=== PATIENT | female | born 2000 | race Hispanic/Latino ===

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

== ENCOUNTER 2023-07-27 15:03 | Emergency (ER) | payer MEDICAID, SELFPAY ==
[2023-07-27 15:05] VITALS: BP 145/96; PULSE 126; RESP 18; TEMP 36.6; O2SAT 96; BMI 33.3
--- NOTE | 2023-07-27 15:20 | EX.ED.DYSGE1 ---
HPI History of Present Illness Chief Complaint: Abn Labs Informant: patient Narrative Narrative: Patient presents with some irritation and swelling behind both ears. Patient states that about 2 years ago she had swelling behind the right ear. It was thought to be due to her wisdom teeth coming in. It was thought to be a lymph node. That went away and was completely gone. She states about 2 weeks ago she had a little swelling back there but then it got better. Now over the last few days she has had a little swelling behind the left but it sort of sore along the skin behind the neck. She states she does have a headache. No pain with neck motion. No numbness tingling weakness. No visual change. No nausea vomiting. No fevers or chills. She saw a physician at the [facility] today who placed her on antibiotics. She is not sure what it was but it was twice a day for about 10 days and she has taken 1 dose. She came in this evening/this afternoon to get a different opinion and to look at the area. Of note, the patient states she gets very nervous in medical facilities. She is not having any palpitations or chest pain. She has no sense that her heart rate was going quick when she came in. Other than the sore area as above, she has no symptoms at all. PFSH PFSH Medical History no medical history Allergy/AdvReac Type Severity Reaction Status Date / Time Fish Containing Products Allergy Vomiting Verified 07/27/23 15:05 shellfish derived Allergy Vomiting Verified 07/27/23 15:05 Social History Smoking Status: Unknown if ever smoked ROS [facility] ED Constitutional Constitutional ED: Denies chills, fever(s), subjective or sweats Eyes Eyes: Denies blurry vision or change in vision ENT ENT ED: Reports other Details: See history of present illness. Her wisdom teeth are not really bothering her now. ; Denies rhinorrhea or sore throat Cardiovascular Cardiovascular: Denies chest pain, palpitations or racing heartbeat Respiratory/Chest Respiratory/Chest: Denies cough or dyspnea Gastrointestinal Gastrointestinal: Denies nausea or vomiting Genitourinary Genitourinary ED: Denies dysuria Musculoskeletal Musculoskeletal: Reports neck pain; Denies back pain Integumentary Reports rash; Denies abscess or Abrasions Neurologic Neurologic: Denies headache(s), paresthesias or weakness Hematologic/Lymphatic Hematologic/Lymphatic: Denies easy bleeding or easy bruising Allergic/Immunologic Allergic/Immunologic ED: Denies urticaria EXAM Physical Exam Narrative Exam Narrative: Patient awake alert no acute distress sitting comfortably in bed carries on normal conversation. HEENT shows no anterior swelling redness rash or vesicles. No facial tenderness. Tympanic membranes are clear bilaterally. No pain with motion of the ears. There is a little bit of erythema of the skin behind the right ear. It is really posterior to the mastoid area. No mastoid tenderness. I do not really feel any enlarged lymph nodes. On the left side there is a little area of erythema buried in the hair also. But no lymph nodes. Again range of motion is normal. Oropharynx shows impacted wisdom teeth but they are not inflamed or infected. No sign of pericoronitis. Overall internal oral exam is normal. Neck is supple. See above on the posterior aspect. But there is no lymphadenopathy or tenderness. No pain with motion. Lungs are clear bilaterally. There is no supra or infraclavicular lymph nodes. Heart rate is 96 when I count. She is not tachycardic at this time. I think her increased heart rate was likely due to anxiety which she states she gets in a medical facility. Abdomen is benign. Const Vital Signs: 07/27/23 15:05 07/27/23 15:16 Temperature 97.9 F Temperature Source Temporal Pulse Rate 126 H Respiratory Rate 18 Respiratory Effort Normal Non-Labored Blood Pressure 145/96 H Blood Pressure Mean 112 Pulse Ox 96 Oxygen Delivery Method Room Air MDM MDM MDM Narrative Medical decision making narrative: I am not seeing any acute abnormality that needs a change in therapy. She may have a little bit of folliculitis or cellulitis in the back of the scalp. I recommend she continue the antibiotics that she is on. She has only had 1 pill. We will see where this goes over time and she will follow-up with the health center. Discharge Plan Triage Chief Complaint: Abn Labs ED Provider: Blair Prasad Dx/Rx/DC Orders Clinical Impression: Folliculitis Instructions: ED Folliculitis Primary Care Provider: MARIETTA Matthews Referrals: MARIETTA Matthews [Other] (If not better in 3 to 5 days. May also follow-up with your Health Center.) Disposition Disposition: Home, Self Care
[2023-07-27 15:29] VITALS: RESP 16; O2SAT 97
== END 2023-07-27 15:30 | disposition home or self-care (01) ==
PROVIDERS: Emergency Provider Emergency Medicine; Visit Provider Emergency Medicine
DX: L73.9 Follicular disorder, unspecified (principal)
CPT/HCPCS: 99282

== ENCOUNTER 2023-07-28 13:17 | Emergency (ER) | payer MEDICAID, SELFPAY ==
[2023-07-28 13:19] VITALS: BP 120/89; PULSE 114; RESP 16; TEMP 36.6; O2SAT 99; BMI 32.5
[2023-07-28 13:23] VITALS: PULSE 104; O2SAT 99
--- NOTE | 2023-07-28 13:52 | EDS_ITS ---
HPI History of Present Illness Chief Complaint: General Illness Informant: patient Onset/Context/Timing Onset: Today Narrative Narrative: Patient presents secondary to scalp pain. She was seen both at the [facility] as well as in the ER secondary to erythema and irritation along the posterior scalp. She had been given an antibiotic at the [facility]. It sounds like she is likely on a cephalosporin. Patient was seen last night and advised to continue the current antibiotic treatment. It was felt she likely had folliculitis and an area of redness in the posterior scalp was noted. Patient returns today stating that she now has pain over the entire back of her scalp. Last night she had a left-sided headache and today a right-sided headache. [facility] Medical History Asthma Home Medications naproxen 500 mg tablet (Naprosyn) 500 mg PO BID PRN pain #20 tabs 07/28/23 [Rx Last Taken Unknown] Allergy/AdvReac Type Severity Reaction Status Date / Time Fish Containing Products Allergy Vomiting Verified 07/28/23 13:20 shellfish derived Allergy Vomiting Verified 07/28/23 13:20 Social History Smoking Status: Never smoker ROS ROS ED Constitutional Constitutional ED: Denies chills or fever(s) Eyes Eyes: Denies discharge from eye(s) ENT ENT ED: Denies discharge from eye(s), rhinorrhea or sore throat Cardiovascular Cardiovascular: Denies chest pain or palpitations Respiratory/Chest Respiratory/Chest: Denies cough or dyspnea Gastrointestinal Gastrointestinal: Denies abdominal pain, nausea or vomiting Musculoskeletal Musculoskeletal: Denies back pain or extremity pain Integumentary Reports rash; Denies Abrasions Neurologic Neurologic: Denies headache(s) or weakness Psychiatric Psychiatric: Reports anxiety; Denies depression Allergic/Immunologic Allergic/Immunologic ED: Denies lip swelling or urticaria EXAM Physical Exam Const Vital Signs: 07/28/23 13:19 07/28/23 13:23 Temperature 97.9 F Temperature Source Temporal Pulse Rate 114 H 104 H Respiratory Rate 16 Blood Pressure 120/89 H Blood Pressure Mean 99 Pulse Ox 99 99 Oxygen Delivery Method Room Air Room Air Positive well nourished and well developed General Appearance ED: well developed HEENT Reports moist mucous membranes Eyes EOMs intact bilaterally Chest Wall inspection of chest normal and palpation of chest normal Resp normal respiratory effort and clear to auscultation bilaterally Cardio regular rate and regular rhythm GI normal to inspection, nondistended, normoactive bowel sounds Extremity normal to inspection Neuro oriented x3 and no sensory deficits noted Motor Exam: strength 5/5 throughout Skin Skin Narrative: No skin rash noted at this time, however patient does have very thick curly hair. Last night in the area of erythema was noted in the posterior scalp. I certainly see no large areas of cellulitis or significant inflammation. MDM MDM MDM Narrative Medical decision making narrative: Patient returns secondary to increased pain after being diagnosed with folliculitis and placed on antibiotic. At this time I see no concern for worsening infection. She raises concern about possible infection in her brain and needing other imaging. She is reassured that at this time imaging is not indicated and there is no evidence of a deep infection or any problems with her brain. I will write her prescription for naproxen to help with pain and inflammation. Return instructions given. Discharge Plan Triage Chief Complaint: General Illness ED Provider: Ciarra Whitaker Dx/Rx/DC Orders Clinical Impression: Scalp pain, Folliculitis Instructions: ED Folliculitis Prescriptions: New naproxen [Naprosyn] 500 mg tablet 500 mg PO BID PRN (Reason: pain) Qty: 20 0RF Primary Care Provider: MARIETTA Matthews Referrals: MARIETTA Matthews [Other] [facility] [Group of Physicians] - As Needed Disposition Disposition: Home, Self Care
== END 2023-07-28 14:02 | disposition home or self-care (01) ==
PROVIDERS: Emergency Provider Emergency Medicine; Visit Provider Emergency Medicine
DX: L73.9 Follicular disorder, unspecified (principal)
CPT/HCPCS: 99282

== ENCOUNTER 2023-08-17 02:07 | Emergency (ER) | payer MEDICAID, SELFPAY ==
[2023-08-17 02:08] VITALS: BP 136/87; PULSE 104; RESP 16; TEMP 36.7; O2SAT 99; BMI 32.8
--- NOTE | 2023-08-17 02:17 | EX.ED.DYSGE1 ---
HPI History of Present Illness Chief Complaint: Headache Detail of Chief Complaint: Left hand paresthesias Informant: patient Onset/Context/Timing Onset: Today Narrative Narrative: Patient presents due to concerns about left hand paresthesias. About 3 weeks ago she developed some intermittent swelling on the posterior scalp. It was intermittently painful. She was seen at urgent care as well as in the emergency room and placed on antibiotics and anti-inflammatories for presumed folliculitis. Patient states she completed the full course of medication and her symptoms resolved. After about a week she started noticing intermittent swelling to the right posterior scalp, however states the area has not been painful. Tonight she noted paresthesias in her left hand and was concerned so she came in for evaluation. She is supposed to be seen in 2 days at the [facility] for repeat evaluation. [facility] Medical History Asthma Allergy/AdvReac Type Severity Reaction Status Date / Time Fish Containing Products Allergy Vomiting Verified 08/17/23 02:11 shellfish derived Allergy Vomiting Verified 08/17/23 02:11 Social History Smoking Status: Never smoker ROS ROS ED Constitutional Constitutional ED: Denies chills or fever(s) Eyes Eyes: Denies change in vision or discharge from eye(s) ENT ENT ED: Denies discharge from eye(s), rhinorrhea or sore throat Cardiovascular Cardiovascular: Denies chest pain or palpitations Respiratory/Chest Respiratory/Chest: Denies cough or dyspnea Gastrointestinal Gastrointestinal: Denies abdominal pain, diarrhea, nausea or vomiting Genitourinary Genitourinary ED: Denies difficulty urinating or dysuria Musculoskeletal Musculoskeletal: Reports neck pain; Denies back pain or extremity pain Integumentary Denies Abrasions or rash Neurologic Neurologic: Reports headache(s) and paresthesias LUE; Denies weakness Psychiatric Psychiatric: Denies anxiety or depression Endocrine Endocrinology: Denies polydipsia or polyuria Allergic/Immunologic Allergic/Immunologic ED: Denies lip swelling or urticaria EXAM Physical Exam Const Vital Signs: 08/17/23 02:08 Temperature 98.1 F Temperature Source Temporal Pulse Rate 104 H Respiratory Rate 16 Blood Pressure 136/87 H Blood Pressure Mean 103 Pulse Ox 99 Oxygen Delivery Method Room Air Positive well nourished and well developed General Appearance ED: well developed HEENT Reports moist mucous membranes Eyes PERRL and EOMs intact bilaterally Neck no lymphadenopathy Chest Wall inspection of chest normal and palpation of chest normal Resp normal respiratory effort and clear to auscultation bilaterally Cardio regular rate and regular rhythm GI non-tender Back/Spine Cervical Spine: Negative for cervical spine tenderness Extremity Extremity Narrative: Patient reports decreased sensation to light touch along her thumb and along the ulnar surface of her fifth finger. She has normal sensation throughout the forearm and upper arm. She has normal strength throughout on testing. She has good cap refill with a strong radial pulse. Neuro oriented x3 Sensory Exam: sensory level loss detected Motor Exam: strength 5/5 throughout Psych mental status grossly normal Skin no rashes or lesions noted MDM MDM MDM Narrative Medical decision making narrative: Given the patient just has paresthesias in the hand and not along the same nerve distribution, I do not feel imaging will be beneficial. I will obtain blood work to include potassium and magnesium levels to ensure these are not abnormal and affecting her nerve conduction. Lab Data Labs: Laboratory Results - last 24 hr 08/17/23 02:20 WBC 12.1 H RBC 4.67 Hgb 12.3 Hct 40.0 MCV 85.7 MCH 26.3 L MCHC 30.8 L RDW Std Deviation 43.1 RDW Coeff of Nathan 13.9 Plt Count 355 MPV 9.9 Immature Gran % (Auto) 0.300 Neut % (Auto) 52.5 Lymph % (Auto) 38.1 Hayes % (Auto) 7.5 Eos % (Auto) 1.0 Baso % (Auto) 0.6 Absolute Neuts (auto) 6.3 Absolute Lymphs (auto) 4.59 H Nucleated RBC % 0 Sodium 141 Potassium 3.6 Chloride 108 H Carbon Dioxide 26.0 Anion Gap 7 BUN 22 H Creatinine 0.74 Estim Creat Clear Calc 99.48 Est GFR (MDRD) Af Amer 128 Est GFR (MDRD) Non-Af 106 BUN/Creatinine Ratio 29.9 H Glucose 102 Calcium 8.6 Magnesium 2.4 Treatment and Re-Evaluation :: CBC reveals elevated white count 12.1 but normal differential. Hemoglobin normal at 12.3. Chemistry studies reveal slightly high chloride at 108. BUN is 22 with a normal creatinine of 0.74. Potassium is normal at 3.6 and magnesium is normal at 2.4. Glucose is 102. Test results are discussed with the patient. Patient does not have an electrolyte abnormality to explain her paresthesias. The pattern of her paresthesias are not consistent with a single nerve distribution. I did explain to her that I do not feel that imaging is necessary or would change her management. She is an appointment to see the [facility] in 2 days for repeat evaluation. At that time they were going to order blood work, so I printed out her labs from [facility] for her to take to her appointment. Return instructions are given. Discharge Plan Triage Chief Complaint: Headache ED Provider: Ciarra Whitaker Dx/Rx/DC Orders Clinical Impression: Paresthesias Instructions: ED Paraesthesias Primary Care Provider: MARIETTA Matthews Referrals: MARIETTA Matthews [Other] [place] [Group of Physicians] - [facility] appointment Disposition Disposition: Home, Self Care
[2023-08-17 02:27] LABS: Absolute Lymphocyte Count 4.59 X10^3/uL (0.83-4.51); Absolute Neutrophil Count 6.3 X10^3/uL (2.0-7.7); Basophil# 0.07 X10^3/uL; Basophil% 0.6 % (0-1); Eosinophil# 0.12 X10^3/uL; Hemoglobin 12.3 g/dL (12.0-15.0); Lymphocyte # 4.59 X10^3/ul (0.83-4.51); Lymphocyte % 38.1 % (19-41); Mean Corp Hgb Conc 30.8 g/dL (32-36); Mean Corpuscular Hgb 26.3 pg (27.0-32.0); Mean Corpuscular Volume 85.7 fL (81-99); Mean Platelet Vol. 9.9 fl (6.2-12.0); Monocyte% 7.5 % (0-10); NRBC Flagged by Analyzer 0 % (0-5); Neutrophil # 6.34 X10^3/uL (2.7-7.7); Neutrophil % 52.5 % (47-70); Platelet Count 355 K/mm3 (150-450); RBC Distribution Width CV 13.9 % (11.6-14.6); RBC Distribution Width SD 43.1 fl (35.1-43.9); Red Blood Count 4.67 M/mm3 (4.2-5.4); White Blood Count 12.1 K/mm3 (4.4-11.0)
[2023-08-17 02:41] LABS: Anion Gap 7 (5-15); BUN 22 mg/dL (7-18); BUN/Creat Ratio 29.9 RATIO (10-20); Calcium,Total 8.6 mg/dL (8.5-10.1); Chloride 108 mmol/L (98-107); Creatinine, Serum 0.74 mg/dL (0.55-1.02); EST Glomerular Filtration Rate 106 mL/min (>60); Est Glom Filt Rate - Afr Amer 128 mL/min (>60); Estimated Creatinine Clearance 99.48 ml/min; Glucose 102 mg/dL (74-106); Magnesium 2.4 mg/dL (1.6-2.6); Potassium 3.6 mmol/L (3.5-5.1); Sodium Level 141 mmol/L (136-145)
[2023-08-17 02:57] VITALS: PULSE 90; RESP 18; O2SAT 96
== END 2023-08-17 02:58 | disposition home or self-care (01) ==
PROVIDERS: Emergency Provider Emergency Medicine; Visit Provider Emergency Medicine
DX: R20.2 Paresthesia of skin (principal); J45.909 Unspecified asthma, uncomplicated; M54.2 Cervicalgia
CPT/HCPCS: 80048; 83735; 85025; 99282; A4216